=== PATIENT | female | born 1965 | race Caucasian/White ===

== ENCOUNTER 2017-01-26 10:30 | Emergency (ER) | payer OTHER ==
[~2017-01-26] VITALS: Ht 160 cm; Wt 70.0 kg
[2017-01-26 10:39] VITALS: Ht 160 cm; Wt 70.0 kg
[2017-01-26] MEDS ORDERED: TRIMETHOPRIM/SULFAMETHOX (DS) TAB PO ONE (11:00)
[2017-01-26] MEDS ORDERED: IBUPROFEN 600 MG TAB PO ONE (11:00)
[2017-01-26] MEDS ORDERED: CEFTRIAXONE 1 GM INJ IM ONE (11:30)
[2017-01-26] MEDS ORDERED: LIDOCAINE 1% (MDV) 20 ML INJ SC ONE (11:30)
--- NOTE | 2017-01-26 12:55 | RADRPT ---
PROCEDURE: US DVT. CLINICAL INDICATION: Right lower extremity pain and swelling. TECHNIQUE: Multiple longitudinal and transverse images of the right lower extremity veins were obt ained with thornton scale and color Doppler imaging. 2D grayscale measurements with compression, color Doppler flow, and augmentation was performed. The calf veins were interrogated as well. COMPARISON: No prior studies are available for comparison. FINDINGS: The right common femoral, superficial femoral and popliteal veins are normally compressible througho ut. Color flow demonstrates normal filling of the vessel. Normal waveforms are visualized and ther e is normal response to augmentation. IMPRESSION: 1. No evidence of a deep vein thrombosis involving the right lower extremity. RPTAT: [facility] Physician Lexie Date Time Electronically viewed and signed by Physician Lexie on 01/26/2017 12:55 /
[2017-01-26] MEDS ORDERED: SULF1TAB31 PO (13:11)
[2017-01-26] MEDS ORDERED: CEPH-443 PO (13:11)
--- NOTE | 2017-01-26 13:16 | ERD ---
ER Documentation Chief Complaint Date/Time DATE: 01/26/17 TIME: 13:13 Chief Complaint RIGHT LEG CELLULITIS HPI This 51-year-old female presents with some swelling redness on the medial aspect of her right distal knee. History is significant for falling and sustaining a contusion in 1 week ago. She had normal x-rays at [place]. She has no fevers, restricted range of motion or weakness. She is taking [place] for pain. ROS All systems reviewed and are negative except as per history of present illness. Medications Home Meds Active Scripts Sulfamethoxazole/Trimethoprim* (Bactrim Ds* Tablet) 1 Each Tablet, 1 TAB PO BID for 7 Days, TAB Prov:KEV LEVY MD 01/26/17 Cephalexin* (Keflex*) 500 Mg Capsule, 500 MG PO QID for 7 Days, CAP Prov:KEV LEVY MD 01/26/17 Allergies Allergies: Coded Allergies: No Known Allergy (Unverified , 01/26/17) PMhx/Soc Medical and Surgical Hx: pt denies Medical Hx, pt denies Surgical Hx Hx Alcohol Use: No Hx Substance Use: No Hx Tobacco Use: No Physical Exam Vitals Vital Signs Date Time Temp Pulse Resp B/P Pulse Ox O2 Delivery O2 Flow Rate FiO2 01/26/17 10:39 97.2 65 18 126/69 100 Physical Exam Const: [] Alert, [id number] per Head: Atraumatic Eyes: Normal Conjunctiva ENT: Normal External Ears, Nose and Mouth. Neck: Full range of motion..~ No meningismus. Resp: Clear to auscultation bilaterally Cardio: Regular rate and rhythm, no murmurs Abd: Soft, non tender, non distended. Normal bowel sounds Skin: No petechiae or rashes Back: No midline or flank tenderness Ext: No cyanosis, or edema. There is some tenderness and fluctuance and some slight redness or irritation on the medial aspect of the right knee. There is some slight extending redness to the right medial calf. There is no significant tenderness of the calf. There is no significant warmth induration outside of the fluctuant area. Neur: Awake and alert Psych: Normal Mood and Affect Results 24 hrs Current Medications Medications (Trade) Dose Ordered Sig/Apula Route PRN Reason Start Time Stop Time Status Last Admin Dose Admin Ibuprofen (Motrin) 600 mg ONCE ONCE PO 01/26/17 11:00 01/26/17 11:02 DC 01/26/17 11:09 Trimethoprim/ Sulfamethoxazole (Bactrim (Ds)) 1 tab ONCE ONCE PO 01/26/17 11:00 01/26/17 11:02 DC 01/26/17 11:09 Lidocaine (Xylocaine 1% (Mdv) 20 ml) 20 ml ONCE ONCE SC 01/26/17 11:30 01/26/17 11:31 DC 01/26/17 11:09 Ceftriaxone Sodium (Rocephin) 1 gm ONCE ONCE IM 01/26/17 11:30 01/26/17 11:31 DC 01/26/17 11:09 Procedures/MDM Right extremity Doppler shows no evidence of DVT. Procedure note-the right medial knee area was prepped with Betadine. 3 cc of lidocaine was used for local nutrition. The fluctuant area was aspirated approximately 8 cc of clear yellow fluid. Incision was made with a #11 scalpel. Slight amount of affected or milky clear yellow fluid was expressed. The wound was packed with approximately 8 cm of quarter-inch gauze. Patient was given Rocephin 1 g IM and Bactrim double strength by mouth. Patient has signs and symptoms of appears to be a traumatic seroma or hematoma which appears mildly infected. Signs and symptoms do not suggest sepsis, ischemia. By report from [place] patient has no history of fracture or foreign body. Patient was discharged home with services for wound check in 2 days, sooner for worsening fevers, redness, new worsening symptoms. Departure Diagnosis: Primary Impression: Cellulitis Site of cellulitis: extremity Site of cellulitis of extremity: lower extremity Laterality: right Qualified Code: L03.115 - Cellulitis of right lower extremity Additional Impression: Seroma Condition: Stable Patient Instructions: Cellulitis, Hematoma Additional Instructions: Lesion appears to be mildly infected seroma. Take antibiotics and recheck in 2 days. Elevate extremity at home. Return sooner for fevers, worsening redness, new worsening symptoms. Ultrasound shows no blood clot today per KEV LEVY MD Jan 26, 2017 13:16
== END 2017-01-26 13:10 | disposition home or self-care (01) ==
LOC: FTE 10:30
DX: L03.115 Cellulitis of right lower limb (principal); T79.2XXA Traumatic secondary and recurrent hemorrhage and seroma, initial encounter
CPT/HCPCS: 10061; 93971; 96372; 99285; J0696

== ENCOUNTER 2017-01-28 10:03 | Emergency (ER) | payer OTHER ==
[~2017-01-28] VITALS: Ht 157.5 cm; Wt 78.0 kg
[~2017-01-28 10:03] MED LIST: CEPH-443 PO; SULF1TAB31 PO
[2017-01-28 10:06] VITALS: Ht 157.5 cm; Wt 78.0 kg
[2017-01-28] MEDS ORDERED: VANCOMYCIN 1 GM (PMX) 250 ML IVPB SCH (11:00)
[2017-01-28 11:04] LABS: ADD SCAN DIFF NO
[2017-01-28 11:07] LABS: BASOPHIL # 0.1 10^3/ul (0.0-0.1); BASOPHILS % 0.6 % (0.0-2.0); EOSINOPHILS # 0.1 10^3/ul (0.0-0.5); EOSINOPHILS % 1.4 % (0.0-7.0); HEMATOCRIT 37.4 % (37.0-47.0); LYMPHOCYTES # 2.8 10^3/ul (0.8-2.9); LYMPHOCYTES % 30.5 % (15.0-51.0); MEAN CORPUSCULAR HEMOGLOBIN 27.8 pg (29.0-33.0); MEAN CORPUSCULAR HGB CONC 32.1 g/dl (32.0-37.0); MEAN CORPUSCULAR VOLUME 86.6 fl (82.0-101.0); MEAN PLATELET VOLUME 9.3 fl (7.4-10.4); MONOCYTE # 0.7 10^3/ul (0.3-0.9); MONOCYTES % 7.5 % (0.0-11.0); NEUTROPHIL # 5.4 10^3/ul (1.6-7.5); NEUTROPHILS % 59.7 % (39.0-77.0); PLATELET COUNT 459 10^3/UL (140-415); RED BLOOD COUNT 4.32 10^6/ul (4.20-5.40); RED CELL DISTRIBUTION WIDTH 14.4 % (11.5-14.5); WHITE BLOOD COUNT 9.1 10^3/ul (4.8-10.8)
[2017-01-28 11:42] LABS: ALBUMIN 4.1 g/dl (3.3-4.9); ALBUMIN/GLOBULIN RATIO 1.51; BILIRUBIN,INDIRECT 0.1 mg/dl (0-1.1); BILIRUBIN,TOTAL 0.1 mg/dl (0.2-1.3); CALCIUM 9.4 mg/dl (8.4-10.2); CREATININE 0.57 mg/dl (0.44-1.00); POTASSIUM 4.9 mmol/L (3.5-5.1); TOTAL PROTEIN 6.8 g/dl (6.1-8.1)
--- NOTE | 2017-01-28 12:48 | ERD ---
ER Documentation Chief Complaint Date/Time DATE: 01/28/17 TIME: 12:46 Chief Complaint s/p 1& d last thursday, has right leg wound check up HPI This 51-year-old female presents for recheck what appeared to be an infected seroma sustained from trauma the week prior. She had normal x-rays at [place]. She has a normal right lower extremity Doppler 2 days ago here. She denies fevers, vomiting, shortness with chest pain. She is taking Bactrim and Keflex. The patient describes her wound is approximately 5% better. She denies any new symptoms. Pain is minimal. ROS All systems reviewed and are negative except as per history of present illness. Medications Home Meds Active Scripts Sulfamethoxazole/Trimethoprim* (Bactrim Ds* Tablet) 1 Each Tablet, 1 TAB PO BID for 7 Days, TAB Prov:KEV LEVY MD 01/26/17 Cephalexin* (Keflex*) 500 Mg Capsule, 500 MG PO QID for 7 Days, CAP Prov:KEV LEVY MD 01/26/17 Allergies Allergies: Coded Allergies: No Known Allergy (Unverified , 01/26/17) PMhx/Soc Medical and Surgical Hx: pt denies Medical Hx, pt denies Surgical Hx Hx Alcohol Use: No Hx Substance Use: No Hx Tobacco Use: No Physical Exam Vitals Vital Signs Date Time Temp Pulse Resp B/P Pulse Ox O2 Delivery O2 Flow Rate FiO2 01/28/17 10:06 98.2 64 18 128/60 99 Physical Exam Const: [] Alert, [id number] per Head: Atraumatic Eyes: Normal Conjunctiva ENT: Normal External Ears, Nose and Mouth. Neck: Full range of motion..~ No meningismus. Resp: Clear to auscultation bilaterally Cardio: Regular rate and rhythm, no murmurs Abd: Soft, non tender, non distended. Normal bowel sounds Skin: No petechiae or rashes. There is I indeed seroma in the medial right proximal lower extremity distal to the knee. There is some surrounding redness but no significant warmth or induration. There is no calf swelling or Homans sign. There is no effusion or bony deformities. Back: No midline or flank tenderness Ext: No cyanosis, or edema Neur: Awake and alert Psych: Normal Mood and Affect Result Diagram: 01/28/17 1045 01/28/17 1045 Results 24 hrs Laboratory Tests Test 01/28/17 10:45 White Blood Count 9.110^3/ul Red Blood Count 4.3210^6/ul Hemoglobin 12.0g/dl Hematocrit 37.4% Mean Corpuscular Volume 86.6fl Mean Corpuscular Hemoglobin 27.8pg Mean Corpuscular Hemoglobin Concent 32.1g/dl Red Cell Distribution Width 14.4% Platelet Count 44180^3/UL Mean Platelet Volume 9.3fl Neutrophils % 59.7% Lymphocytes % 30.5% Monocytes % 7.5% Eosinophils % 1.4% Basophils % 0.6% Nucleated Red Blood Cells % 0.0/100WBC Neutrophils # 5.410^3/ul Lymphocytes # 2.810^3/ul Monocytes # 0.710^3/ul Eosinophils # 0.110^3/ul Basophils # 0.110^3/ul Nucleated Red Blood Cells # 0.010^3/ul Sodium Level 143mmol/L Potassium Level 4.9mmol/L Chloride Level 106mmol/L Carbon Dioxide Level 28mmol/L Anion Gap 14 Blood Urea Nitrogen 9mg/dl Creatinine 0.57mg/dl Glucose Level 92mg/dl Calcium Level 9.4mg/dl Total Bilirubin 0.1mg/dl Direct Bilirubin 0.00mg/dl Indirect Bilirubin 0.1mg/dl Aspartate Amino Transf (AST/SGOT) 23IU/L Alanine Aminotransferase (ALT/SGPT) 40IU/L Alkaline Phosphatase 56IU/L Total Protein 6.8g/dl Albumin 4.1g/dl Globulin 2.70g/dl Albumin/Globulin Ratio 1.51 Current Medications Medications (Trade) Dose Ordered Sig/Paula Route PRN Reason Start Time Stop Time Status Last Admin Dose Admin Vancomycin HCl (Vancocin) 250 ml @ 125 mls/hr ONCE IVPB 01/28/17 11:00 01/28/17 12:59 01/28/17 10:51 Procedures/MDM Patient presents with a healing right leg lesion which appears to be a traumatic seroma with secondary infection. Gauze was removed. Patient is improving although only slightly. She was given vancomycin 1 g IV and will be instructed to continue Bactrim and Keflex and return for another 2-3 day wound check. It does not appear to be worsening and CBC shows no evidence of leukocytosis or signs of residual abscess.. We will continue outpatient treatment and close follow-up. She is to keep her extremity elevated. Patient should return sooner for for fever, worsening redness, shortness breath, new worsening symptoms. Current symptoms do not suggest DVT, osteomyelitis, sepsis , additional complications. Departure Diagnosis: Primary Impression: Cellulitis Site of cellulitis: unspecified site Qualified Code: L03.90 - Cellulitis, unspecified cellulitis site Additional Impression: Encounter for wound re-check Condition: Stable Patient Instructions: Cellulitis Additional Instructions: Continue current medication. Recheck in 2-3 days. Return sooner for worsening redness, fevers, new symptoms. KEV LEVY MD Jan 28, 2017 12:48
== END 2017-01-28 12:57 | disposition home or self-care (01) ==
LOC: FTE 10:03
DX: L03.115 Cellulitis of right lower limb (principal)
CPT/HCPCS: 36415; 80053; 85025; 87070; 96365; 96366; 99284; J3370

== ENCOUNTER 2017-02-10 21:24 | Emergency (ER) | payer OTHER ==
[~2017-02-10] VITALS: Ht 160 cm; Wt 68.2 kg
[2017-02-10 21:34] VITALS: Ht 160 cm; Wt 68.2 kg
[2017-02-10] MEDS ORDERED: PIPER-TAZO 3.375 GM IV (PMX) 100 ML IVPB STA (21:44)
[2017-02-10] MEDS ORDERED: VANCOMYCIN 1 GM (PMX) 250 ML IVPB ONE (22:00)
[2017-02-10 22:13] LABS: ADD SCAN DIFF NO
[2017-02-10 22:14] LABS: BASOPHIL # 0.1 10^3/ul (0.0-0.1); BASOPHILS % 0.7 % (0.0-2.0); EOSINOPHILS # 0.1 10^3/ul (0.0-0.5); EOSINOPHILS % 0.9 % (0.0-7.0); HEMATOCRIT 37.4 % (37.0-47.0); LYMPHOCYTES # 3.8 10^3/ul (0.8-2.9); MEAN CORPUSCULAR HEMOGLOBIN 27.6 pg (29.0-33.0); MEAN CORPUSCULAR HGB CONC 32.1 g/dl (32.0-37.0); MEAN PLATELET VOLUME 9.3 fl (7.4-10.4); MONOCYTE # 0.6 10^3/ul (0.3-0.9); MONOCYTES % 5.6 % (0.0-11.0); NEUTROPHIL # 5.2 10^3/ul (1.6-7.5); NEUTROPHILS % 53.6 % (39.0-77.0); PLATELET COUNT 436 10^3/UL (140-415); RED BLOOD COUNT 4.35 10^6/ul (4.20-5.40); RED CELL DISTRIBUTION WIDTH 14.2 % (11.5-14.5); WHITE BLOOD COUNT 9.8 10^3/ul (4.8-10.8)
[2017-02-10 22:44] LABS: CREATININE 0.59 mg/dl (0.44-1.00); POTASSIUM 3.7 mmol/L (3.5-5.1)
[2017-02-10] MEDS ORDERED: CEPH-443 PO (22:51)
[2017-02-10] MEDS ORDERED: IBUP-1542 PO (22:51)
[2017-02-10] MEDS ORDERED: SULF1TAB31 PO (22:51)
--- NOTE | 2017-02-10 22:57 | ERD ---
ER Documentation Chief Complaint Date/Time DATE: 02/10/17 TIME: 22:54 Chief Complaint pt has red swollen area on medial R knee , post fall x 1 month ago, HPI Patient is a 51-year-old female with no medical problems who presents with right leg swelling and redness. She had 2 previous visits to the emergency department on January 26 and January 28 for the same. She had an incision and drainage performed on 1 of these visits. She was given antibiotics for 1 week and says that it has improved by 60% but that there is still swelling and redness of [place]. the just below the right knee. This started after she fell on to the area 1 month ago. She denies fevers. Upon review of old medical records this is the patient's third visit to the ER since January 26 for similar complaint. Her primary doctor is Dr. Stack. ROS All systems reviewed and are negative except as per history of present illness. Medications Home Meds Active Scripts Ibuprofen* (Motrin*) 600 Mg Tab, 600 MG PO Q6H Y for PAIN AND OR ELEVATED TEMP, #30 TAB Prov:LINDA CURRAN MD 02/10/17 Sulfamethoxazole/Trimethoprim* (Bactrim Ds* Tablet) 1 Each Tablet, 1 TAB PO BID , #14 TAB Prov:LINDA CURRAN MD 02/10/17 Cephalexin* (Keflex*) 500 Mg Capsule, 500 MG PO QID for 7 Days, CAP Prov:LINDA CURRAN MD 02/10/17 Discontinued Scripts Sulfamethoxazole/Trimethoprim* (Bactrim Ds* Tablet) 1 Each Tablet, 1 TAB PO BID for 7 Days, TAB Prov:KEV LEVY MD 01/26/17 Cephalexin* (Keflex*) 500 Mg Capsule, 500 MG PO QID for 7 Days, CAP Prov:KEV LEVY MD 01/26/17 Allergies Allergies: Coded Allergies: No Known Allergy (Unverified , 02/10/17) PMhx/Soc Medical and Surgical Hx: pt denies Medical Hx Hx Alcohol Use: No Hx Substance Use: No Hx Tobacco Use: No Smoking Status: Never smoker FmHx Family History: diabetes Physical Exam Vitals Vital Signs Date Time Temp Pulse Resp B/P Pulse Ox O2 Delivery O2 Flow Rate FiO2 02/10/17 21:34 98.6 68 20 166/83 99 Physical Exam Const: No acute distress Head: Atraumatic Eyes: Normal Conjunctiva ENT: Normal External Ears, Nose and Mouth. Neck: Full range of motion..~ No meningismus. Resp: Clear to auscultation bilaterally Cardio: Regular rate and rhythm, no murmurs Abd: Soft, non tender, non distended. Normal bowel sounds Skin: 5 x 6 cm area below the right knee with induration and redness, no fluctuance Back: No midline or flank tenderness Ext: No cyanosis, or edema Neur: Awake and alert Psych: Normal Mood and Affect Result Diagram: 02/10/17219902/10/172199 Results 24 hrs Laboratory Tests Test 02/10/17 22:00 White Blood Count 9.810^3/ul Red Blood Count 4.3510^6/ul Hemoglobin 12.0g/dl Hematocrit 37.4% Mean Corpuscular Volume 86.0fl Mean Corpuscular Hemoglobin 27.6pg Mean Corpuscular Hemoglobin Concent 32.1g/dl Red Cell Distribution Width 14.2% Platelet Count 86947^3/UL Mean Platelet Volume 9.3fl Neutrophils % 53.6% Lymphocytes % 39.0% Monocytes % 5.6% Eosinophils % 0.9% Basophils % 0.7% Nucleated Red Blood Cells % 0.0/100WBC Neutrophils # 5.210^3/ul Lymphocytes # 3.810^3/ul Monocytes # 0.610^3/ul Eosinophils # 0.110^3/ul Basophils # 0.110^3/ul Nucleated Red Blood Cells # 0.010^3/ul Sodium Level 138mmol/L Potassium Level 3.7mmol/L Chloride Level 103mmol/L Carbon Dioxide Level 29mmol/L Anion Gap 10 Blood Urea Nitrogen 12mg/dl Creatinine 0.59mg/dl Glucose Level 87mg/dl Calcium Level 9.0mg/dl Current Medications Medications (Trade) Dose Ordered Sig/Paula Route PRN Reason Start Time Stop Time Status Last Admin Dose Admin Vancomycin HCl 250 ml @ 125 mls/hr ONCE ONCE IVPB 02/10/17 22:00 02/10/17 23:59 02/10/17 22:19 Piperacillin Sod/ Tazobactam Sod (Zosyn 3.375gm/ 100 ml (Pmx)) 100 ml @ 200 mls/hr ONCE STAT IVPB 02/10/17 21:44 02/10/17 22:13 DC 02/10/17 21:59 Procedures/MDM Patient is a 51-year-old female presents with right leg redness and swelling. As this is her third visit I want to admit her to the hospital for IV antibiotics but she is refusing to be admitted given her insurance. She says that she will have to pay a high deductible. The patient therefore has chosen to be discharged and will be given a prescription for Keflex and Bactrim. She was given the first doses of vancomycin and Zosyn in the emergency department prior to discharge. She can return for any worsening symptoms. At this point I see no signs of abscess and I do believe this is a persistent cellulitis. She should follow-up with her primary doctor within 24-48 hours. I do not believe she requires any imaging studies at this time as she has had x-ray and ultrasound of this area already which were negative. Departure Diagnosis: Primary Impression: Cellulitis Site of cellulitis: extremity Site of cellulitis of extremity: lower extremity Laterality: right Qualified Code: L03.115 - Cellulitis of right lower extremity Condition: Fair Patient Instructions: Cellulitis Additional Instructions: Call your primary care doctor TOMORROW for an appointment during the next 1-2 days.See the doctor sooner or return here if your condition worsens before your appointment time. LINDA CURRAN MD Feb 10, 2017 22:57
[2017-02-11 01:12] VITALS: BP 120/76; PULSE 52; RESP 18; TEMP 98
== END 2017-02-11 01:14 | disposition home or self-care (01) ==
LOC: E/R 21:24
DX: L03.115 Cellulitis of right lower limb (principal)
CPT/HCPCS: 36415; 80048; 85025; 87040; 96365; 96366; 96375; 99284; J2543; J3370